=== PATIENT | female | born 1980 | race Caucasian/White ===

== ENCOUNTER 2017-01-02 16:30 | Emergency (ER) | payer OTHER ==
[~2017-01-02] VITALS: Ht 233.7 cm; Wt 117.1 kg
[~2017-01-02 16:30] MED LIST: ADVIL100 MG PO; Cipro PO; Flagyl PO
[2017-01-02 17:38] LABS: HEMATOCRIT 29.2 % (36.0-46.0); MCH 22.6 PG (29.0-34.0); MCHC 30.1 G/DL (30.0-36.0); MCV 75.1 FL (83-99); PLATELET COUNT 178 K/uL (156-360); RBC DIS.WIDTH-CV 16.6 % (11.8-14.6); RED BLOOD COUNT 3.89 M/uL (3.80-5.20); WHITE BLOOD COUNT 5.7 K/uL (4.1-10.2)
[2017-01-02 17:47] LABS: CHLORIDE 108 mEq/L (99-109); POTASSIUM 3.2 mEq/L (3.7-5.4); SODIUM 140 mEq/L (136-147)
[2017-01-02 17:49] LABS: GLUCOSE 77 mg/dL (70-99)
[2017-01-02 17:51] LABS: ANION GAP 8 MEQ/L (2-14); TOTAL BILIRUBIN 0.5 mg/dL (0.0-1.0)
[2017-01-02 17:53] LABS: ALKALINE PHOSPHATASE 68 IU/L (3-129); GFR ESTIMATE (CALCULATED) > 59 mL/min/
[2017-01-02 17:54] LABS: UREA NITROGEN (BUN) 8 mg/dL (9-23)
[2017-01-02 17:57] LABS: LIPASE 14 U/L (1.0-51.0)
[2017-01-02 18:03] LABS: QUANTITATIVE HCG < 4.0 MIU/ML
[2017-01-02 18:51] LABS: ADD MIUA? YES; BILIRUBIN NEGATIVE; BLOOD MODERATE; GLUCOSE (STRIP) NEGATIVE; KETONES NEGATIVE; LEUKOCYTES NEGATIVE; NITRITE NEGATIVE; PROTEIN (STRIP) >=500; SPECIFIC GRAVITY 1.025 (1.000-1.030); UROBILINOGEN 0.2 MG/DL (0.2-1.0)
[2017-01-02 18:53] LABS: COLOR RED ((YELLOW))
[2017-01-02 18:54] LABS: RED BLOOD CELLS TNTC /HPF (0-5); UCUL ADDED? YES
[2017-01-02] MEDS ORDERED: CIPRO500 MG PO (21:38)
[2017-01-02] MEDS ORDERED: ZOFRAN ODT4 MG PO (21:38)
[2017-01-02] MEDS ORDERED: FLAGYL500 MG PO (21:38)
[2017-01-02] MEDS ORDERED: BENTYL10 MG PO (21:38)
[2017-01-02 22:19] VITALS: BP 133/67
== END 2017-01-02 22:20 | disposition home or self-care (01) ==
LOC: EME 16:30
PROVIDERS: Physician Assistant
DX: N83.202 Unspecified ovarian cyst, left side (principal); R11.2 Nausea with vomiting, unspecified; R19.7 Diarrhea, unspecified
CPT/HCPCS: 74176; 76856; 80053; 81003; 83690; 84702; 85027; 87086; 99281; 99285; J2405; J3010; J7030

== ENCOUNTER 2017-02-12 11:58 | Emergency (ER) | payer OTHER ==
[~2017-02-12] VITALS: Ht 160 cm; Wt 114.9 kg
[~2017-02-12 11:58] MED LIST changes: +BENTYL10 MG PO; +CIPRO500 MG PO; +FLAGYL500 MG PO; +ZOFRAN ODT4 MG PO
[2017-02-12 13:06] LABS: HEMATOCRIT 31.2 % (36.0-46.0); MCH 25.1 PG (29.0-34.0); MCHC 30.8 G/DL (30.0-36.0); MCV 81.5 FL (83-99); MEAN PLAT.VOLUME 12.7 uM^3 (9.5-12.4); PLATELET COUNT 168 K/uL (156-360); RBC DIS.WIDTH-CV 19.6 % (11.8-14.6); RBC DIS.WIDTH-SD 57.9 % (39-53); RED BLOOD COUNT 3.83 M/uL (3.80-5.20); WHITE BLOOD COUNT 5.5 K/uL (4.1-10.2)
[2017-02-12 13:15] LABS: CHLORIDE 111 mEq/L (99-109); POTASSIUM 3.5 mEq/L (3.7-5.4); SODIUM 142 mEq/L (136-147)
[2017-02-12 13:18] LABS: GLUCOSE 85 mg/dL (70-99)
[2017-02-12 13:19] LABS: ANION GAP 13 MEQ/L (2-14)
[2017-02-12 13:20] LABS: TOTAL BILIRUBIN 0.3 mg/dL (0.0-1.0)
[2017-02-12 13:21] LABS: ALKALINE PHOSPHATASE 63 IU/L (3-129); GFR ESTIMATE (CALCULATED) > 59 mL/min/
[2017-02-12 13:22] LABS: UREA NITROGEN (BUN) 10 mg/dL (9-23)
[2017-02-12 13:30] LABS: QUANTITATIVE HCG < 4.0 MIU/ML
[2017-02-12 14:07] LABS: COLOR BLOODY ((YELLOW))
[2017-02-12 14:08] LABS: GLUCOSE (STRIP) NEGATIVE; KETONES 5
[2017-02-12 14:09] LABS: BLOOD LARGE; LEUKOCYTES SMALL; PH, URINE 6.5 (5-8); PROTEIN (STRIP) 300
[2017-02-12 14:10] LABS: ADD MIUA? YES; BILIRUBIN NEGATIVE; NITRITE NEGATIVE; UROBILINOGEN 0.2 MG/DL (0.2-1.0)
[2017-02-12 14:12] LABS: RED BLOOD CELLS TNTC /HPF (0-5); UCUL ADDED? YES
[2017-02-12] MEDS ORDERED: ULTRAM50 MG PO (16:11)
[2017-02-12] MEDS ORDERED: ZOFRAN ODT4 MG PO (16:11)
[2017-02-12 17:09] VITALS: BP 131/64
[2017-02-14] MEDS ORDERED: PROZAC40 MG PO (16:19)
[2017-02-14] MEDS ORDERED: IRON325 M1 PO (16:19)
[2017-02-14] MEDS ORDERED: BUSPAR5 MG PO (16:19)
[2017-02-14] MEDS ORDERED: PROVERA,CYCRIN10 MG PO (16:20)
== END 2017-02-12 17:34 | disposition home or self-care (01) ==
LOC: EME 11:58
PROVIDERS: Nurse Practitioner Family
DX: N83.209 Unspecified ovarian cyst, unspecified side (principal); D25.9 Leiomyoma of uterus, unspecified; N93.9 Abnormal uterine and vaginal bleeding, unspecified
CPT/HCPCS: 76856; 80053; 81003; 84702; 85027; 87086; 99281; 99285; J1885; J3010; J7030

== ENCOUNTER 2017-02-17 21:10 | Inpatient (IN) | payer OTHER ==
[~2017-02-17] VITALS: Ht 160 cm; Wt 114.7 kg
[~2017-02-17 21:10] MED LIST changes: +BUSPAR5 MG PO; +IRON325 M1 PO; +PROVERA,CYCRIN10 MG PO; +PROZAC40 MG PO; +ULTRAM50 MG PO
[2017-02-18 09:51] VITALS: BP 129/61
[2017-02-18 16:13] VITALS: BP 123/62
[2017-02-18 20:34] VITALS: BP 115/59
[2017-02-19] VITALS (12 sets, daily range): BP systolic 90–141; BP diastolic 45–68
[2017-02-19 07:13] LABS: HEMATOCRIT 21.7 % (36.0-46.0); MCH 24.7 PG (29.0-34.0); MCV 85.1 FL (83-99); RBC DIS.WIDTH-CV 18.1 % (11.8-14.6); RBC DIS.WIDTH-SD 55.7 % (39-53); WHITE BLOOD COUNT 5.3 K/uL (4.1-10.2)
[2017-02-19 07:42] LABS: RED BLOOD COUNT 2.55 M/uL (3.80-5.20)
[2017-02-19 08:01] LABS: MEAN PLAT.VOLUME 12.4 uM^3 (9.5-12.4); PLAT.SUFFICIENCY ADEQUATE; PLATELET COUNT 161 K/uL (156-360)
[2017-02-20 00:06] VITALS: BP 125/65
[2017-02-20 01:06] VITALS: BP 128/67
[2017-02-20 01:38] VITALS: BP 126/69
[2017-02-20 03:38] VITALS: BP 122/59
[2017-02-20 07:00] VITALS: BP 143/77
[2017-02-20 07:11] LABS: HEMATOCRIT 24.5 % (36.0-46.0); MCH 26.7 PG (29.0-34.0); MEAN PLAT.VOLUME 12.5 uM^3 (9.5-12.4); PLATELET COUNT 130 K/uL (156-360); RBC DIS.WIDTH-CV 17.2 % (11.8-14.6); RBC DIS.WIDTH-SD 53.7 % (39-53); RED BLOOD COUNT 2.85 M/uL (3.80-5.20); WHITE BLOOD COUNT 4.3 K/uL (4.1-10.2)
[2017-02-20 11:05] VITALS: BP 141/82
[2017-02-20] MEDS ORDERED: TRAMADOL HCL50 MG PO (11:51)
[2017-02-20] MEDS ORDERED: IBUPROFEN800 MG PO (11:51)
== END 2017-02-20 13:19 | disposition home or self-care (01) | DRG 742 ==
LOC: ENRESERV 21:10 → 2SOUTH 02-18 09:02 → 2EAST 02-18 09:02 → ENRESERV 02-18 11:54 → 2SOUTH 02-18 15:27 → 2EAST 02-18 16:03
PROVIDERS: Obstetrics & Gynecology Obstetrics
PROC: 0DNU0ZZ Release Omentum, Open Approach (ICD-10-PCS; principal; 2017-02-18)
PROC: 0UTC0ZZ Resection of Cervix, Open Approach (ICD-10-PCS; principal; 2017-02-18)
PROC: 0UT70ZZ Resection of Bilateral Fallopian Tubes, Open Approach (ICD-10-PCS; principal; 2017-02-18)
PROC: 0UT20ZZ Resection of Bilateral Ovaries, Open Approach (ICD-10-PCS; principal; 2017-02-18)
PROC: 0UT90ZZ Resection of Uterus, Open Approach (ICD-10-PCS; principal; 2017-02-18)
PROC: 0TJB8ZZ Inspection of Bladder, Via Natural or Artificial Opening Endoscopic (ICD-10-PCS; 2017-02-18)
PROC: 30233N1 Transfusion of Nonautologous Red Blood Cells into Peripheral Vein, Percutaneous Approach (ICD-10-PCS; 2017-02-19)
DX: D25.9 Leiomyoma of uterus, unspecified (principal); D62 Acute posthemorrhagic anemia; N73.6 Female pelvic peritoneal adhesions (postinfective); N92.0 Excessive and frequent menstruation with regular cycle; F41.9 Anxiety disorder, unspecified; N83.202 Unspecified ovarian cyst, left side; Z68.41 Body mass index [BMI] 40.0-44.9, adult; Z86.59 Personal history of other mental and behavioral disorders; Z90.49 Acquired absence of other specified parts of digestive tract
CPT/HCPCS: 85027; 86850; 86900; 86901; 86920; 88307; 94799; J0131; J0690; J1100; J1170; J1885; J2250; J2405; J2710; J2765; J3010; J7120; P9016

== ENCOUNTER 2017-06-20 23:23 | Emergency (ER) | payer OTHER ==
[~2017-06-20] VITALS: Ht 160 cm; Wt 119.0 kg
[~2017-06-20 23:23] MED LIST changes: +IBUPROFEN800 MG PO; +TRAMADOL HCL50 MG PO
[2017-06-20 23:45] VITALS: BP 138/88
== END 2017-06-21 00:30 | disposition left against medical advice (07) ==
LOC: EME 23:23
DX: G43.909 Migraine, unspecified, not intractable, without status migrainosus (principal); Z53.21 Procedure and treatment not carried out due to patient leaving prior to being seen by health care provider